=== PATIENT | male | born 1960 | race Caucasian/White ===

== ENCOUNTER 2020-12-26 07:04 | Day surgery (SDC) | payer BC ==
[~2020-12-26] VITALS: Ht 195.6 cm; Wt 101.8 kg
[~2020-12-26 07:04] MED LIST: ASPIRIN E.C. 8181 MG PO; NITROSTAT0.4 MG/TAB SL; PRILOSEC 20MG20 MG PO; TOPROL XL 25MG25 MG PO
[2020-12-26] MEDS ORDERED: VIAGRA 25MG TAB25 MG PO (09:14)
[2020-12-26 09:15] VITALS: BP 122/76; PULSE 63; TEMP 97.9
[2020-12-26] MEDS ORDERED: ULTRAM 50MG TAB50 MG PO (14:40)
[2020-12-26 15:15] VITALS: BP 106/75; PULSE 51; TEMP 97.4
--- NOTE | 2020-12-26 15:15 | NUR ---
The patient arrived back to [facility] from the recovery room at this time. The patient appears alert and oriented and denies any pain or nausea at this time. Post operative vital signs were started at this time. at bedside. Call light is within reach. Will continue to monitor the patient. Dressing to right side of neck appears clean, dry and intact.
[2020-12-26 15:30] VITALS: BP 116/77; PULSE 50
--- NOTE | 2020-12-26 15:30 | NUR ---
The patient appears more alert and agrees to try some water at this time. Vital signs appear stable. remains at bedside.
[2020-12-26 15:45] VITALS: BP 122/63; PULSE 55
--- NOTE | 2020-12-26 15:45 | NUR ---
The patient appears to be tolerating the water well and denies wanting anything further to eat or drink at this time. Vital signs remain stable. The patient continues to deny any pain or nausea.
[2020-12-26 16:00] VITALS: BP 113/73; PULSE 63
--- NOTE | 2020-12-26 16:00 | NUR ---
The patient agrees to ambulate to the bathroom at this time. The patient voided without difficulty and is going to get dressed and notify the staff when he is ready to review his discharge paperwork.
--- NOTE | 2020-12-26 16:30 | NUR ---
Discharge instructions were reviewed with the patient and his at this time. Questions were answered and they both verbalized understanding. The patient's IV to her left forearm was removed and a pressure dressing was applied to the site. The patient is dressed and ready to be escorted out.
--- NOTE | 2020-12-26 16:37 | NUR ---
The patient was escorted out via wheelchair to a private vehicle by NELLI Simmons. The patient's belongings and discharge paperwork were sent with him. The patient's is present to drive him home.
== END 2020-12-26 16:37 | disposition home or self-care (01) ==
LOC: SDCO 07:04
DX: C43.4 Malignant melanoma of scalp and neck (principal); I10 Essential (primary) hypertension; Z87.891 Personal history of nicotine dependence; Z79.899 Other long term (current) drug therapy; Z20.822 Contact with and (suspected) exposure to COVID-19; Z79.82 Long term (current) use of aspirin; Z80.0 Family history of malignant neoplasm of digestive organs; Z82.3 Family history of stroke
CPT/HCPCS: A9541; J0690; J1100; J1885; J2250; J2370; J2405; J2704; J3010; J7120

== ENCOUNTER → 2023-08-14 | Outpatient (CLI) | payer BC ==
[~2023-08-14] MED LIST changes: +ULTRAM 50MG TAB50 MG PO; +VIAGRA 25MG TAB25 MG PO
== END ==
LOC: COL.RAD 07:09
DX: K40.90 Unilateral inguinal hernia, without obstruction or gangrene, not specified as recurrent (principal)

== ENCOUNTER → 2024-02-11 | Outpatient (CLI) | payer BC ==
[~2024-02-11] MED LIST changes: +Sincalide 2 MCG in NS 13 ML IV SCH
== END ==
LOC: COL.RAD 11:54
DX: R10.11 Right upper quadrant pain (principal)
CPT/HCPCS: A9537-JZ; J2805